=== PATIENT | male | born 1990 | race Caucasian/White ===

== ENCOUNTER 2017-05-11 13:16 | Inpatient (IN) | payer OTHER ==
[2017-05-11] MEDS: FAMOTIDINE 20 MG TAB PO (14:59)
[2017-05-11] MEDS: LISINOPRIL 20 MG TAB PO (14:59)
[2017-05-11] MEDS ORDERED: ONDANSETRON 4 MG INJ IV (15:00)
[2017-05-11] MEDS ORDERED: hydrALAzine 20 MG INJ IV (15:00)
[2017-05-11] MEDS ORDERED: HYDROCODONE/APAP (5/325) TAB PO (15:00)
[2017-05-11] MEDS ORDERED: ACETAMINOPHEN 325 MG TAB PO (15:00)
[2017-05-11 15:57] LABS: PHOSPHORUS 3.6 mg/dl (2.5-4.9)
[2017-05-11 15:57] LABS: MAGNESIUM 1.7 mg/dl (1.7-2.5)
[2017-05-11 15:58] LABS: CREATINE KINASE 61 IU/L (23-200)
[2017-05-11 16:09] LABS: CK INDEX 2.7
[2017-05-11 16:10] LABS: CK-MB 1.66 ng/ml (0.0-2.4)
[2017-05-11 16:28] LABS: THYROID STIMULATING HORMONE 0.901 MIU/L (0.465-4.680)
[2017-05-11 16:54] LABS: TROPONIN-I < 0.012 ng/ml (0.00-0.12)
[2017-05-11] MEDS: FUROSEMIDE 20 MG INJ IV (17:18)
[2017-05-11] MEDS: DOCUSATE SODIUM 100 MG CAP PO (20:19)
[2017-05-11 22:26] LABS: CREATINE KINASE 58 IU/L (23-200)
[2017-05-11 22:38] LABS: CK INDEX 2.4; TROPONIN-I 0.013 ng/ml (0.00-0.12)
[2017-05-11 22:52] LABS: CK-MB 1.41 ng/ml (0.0-2.4)
[2017-05-12] MEDS: FUROSEMIDE 20 MG INJ IV ×2 (05:52→13:16)
[2017-05-12] MEDS: DOCUSATE SODIUM 100 MG CAP PO ×2 (08:48→21:25)
[2017-05-12] MEDS: ASPIRIN (EC) 81 MG TAB PO (08:48)
[2017-05-12] MEDS: LISINOPRIL 20 MG TAB PO (08:49)
[2017-05-12] MEDS: FAMOTIDINE 20 MG TAB PO (08:49)
[2017-05-12 09:51] LABS: ADD MAN DIFF? NO
[2017-05-12 09:54] LABS: BASOPHIL # 0.1 10^3/ul (0.0-0.1); BASOPHILS % 0.8 % (0.0-2.0); EOSINOPHILS # 0.4 10^3/ul (0.0-0.5); EOSINOPHILS % 3.1 % (0.0-7.0); HEMATOCRIT 44.9 % (42.0-52.0); HEMOGLOBIN 14.7 g/dl (14.0-18.0); LYMPHOCYTES # 1.5 10^3/ul (0.8-2.9); LYMPHOCYTES % 11.2 % (15.0-51.0); MEAN CORPUSCULAR HGB CONC 32.7 g/dl (32.0-37.0); MEAN CORPUSCULAR VOLUME 82.5 fl (82.0-101.0); MEAN PLATELET VOLUME 10.8 fl (7.4-10.4); MONOCYTE # 0.8 10^3/ul (0.3-0.9); MONOCYTES % 5.8 % (0.0-11.0); NEUTROPHIL # 10.3 10^3/ul (1.6-7.5); NEUTROPHILS % 78.7 % (39.0-77.0); PLATELET COUNT 255 10^3/UL (140-415); RED BLOOD COUNT 5.44 10^6/ul (4.70-6.10); RED CELL DISTRIBUTION WIDTH 14.7 % (11.5-14.5)
[2017-05-12 10:22] LABS: ANION GAP 14 (8-16); BLOOD UREA NITROGEN 18 mg/dl (7-20); CALCIUM 9.1 mg/dl (8.4-10.2); CARBON DIOXIDE 30 mmol/L (21-31); CHLORIDE 103 mmol/L (97-110); CHOLESTEROL 146 mg/dl (100-200); CREATININE 0.87 mg/dl (0.61-1.24); GLUCOSE 98 mg/dl (70-220); HDL CHOLESTEROL 24 mg/dl (30-63); LDL CHOLESTEROL,CALCULATED 106 mg/dl; MAGNESIUM 1.8 mg/dl (1.7-2.5); POTASSIUM 4.2 mmol/L (3.5-5.1); SODIUM 143 mmol/L (135-144); TRIGLYCERIDES 80 mg/dl (0-149)
[2017-05-12] MEDS: MAGNESIUM SULFATE 3 GM in DEXTROSE 5% 100 ML IVPB (15:05)
[2017-05-12] MEDS: ENOXAPARIN 40 MG/0.4 ML SYG SC (15:47)
[2017-05-12] MEDS: FUROSEMIDE 40 MG INJ IV (18:22)
[2017-05-13] MEDS: FUROSEMIDE 40 MG INJ IV ×2 (06:32→17:40)
[2017-05-13 08:49] LABS: ADD MAN DIFF? NO
[2017-05-13 08:55] LABS: BASOPHIL # 0.1 10^3/ul (0.0-0.1); BASOPHILS % 1.1 % (0.0-2.0); EOSINOPHILS # 0.5 10^3/ul (0.0-0.5); HEMOGLOBIN 14.1 g/dl (14.0-18.0); LYMPHOCYTES # 1.5 10^3/ul (0.8-2.9); LYMPHOCYTES % 15.2 % (15.0-51.0); MEAN CORPUSCULAR HEMOGLOBIN 26.9 pg (29.0-33.0); MEAN CORPUSCULAR HGB CONC 32.8 g/dl (32.0-37.0); MEAN CORPUSCULAR VOLUME 82.1 fl (82.0-101.0); MEAN PLATELET VOLUME 10.9 fl (7.4-10.4); MONOCYTE # 0.8 10^3/ul (0.3-0.9); MONOCYTES % 7.7 % (0.0-11.0); NEUTROPHIL # 7.1 10^3/ul (1.6-7.5); NEUTROPHILS % 70.8 % (39.0-77.0); PLATELET COUNT 250 10^3/UL (140-415); RED BLOOD COUNT 5.24 10^6/ul (4.70-6.10); RED CELL DISTRIBUTION WIDTH 14.5 % (11.5-14.5)
[2017-05-13 08:55] LABS: WHITE BLOOD COUNT 10.1 10^3/ul (4.8-10.8)
[2017-05-13] MEDS: DOCUSATE SODIUM 100 MG CAP PO ×2 (09:18→20:36)
[2017-05-13] MEDS: FAMOTIDINE 20 MG TAB PO (09:18)
[2017-05-13] MEDS: ASPIRIN (EC) 81 MG TAB PO (09:18)
[2017-05-13] MEDS: LISINOPRIL 20 MG TAB PO (09:18)
[2017-05-13] MEDS: ENOXAPARIN 40 MG/0.4 ML SYG SC (09:19)
[2017-05-13 09:23] LABS: ANION GAP 12 (8-16); BLOOD UREA NITROGEN 22 mg/dl (7-20); CARBON DIOXIDE 32 mmol/L (21-31); CHLORIDE 103 mmol/L (97-110); GLUCOSE 107 mg/dl (70-220); POTASSIUM 3.8 mmol/L (3.5-5.1); SODIUM 143 mmol/L (135-144)
[2017-05-13 09:26] LABS: MAGNESIUM 1.9 mg/dl (1.7-2.5)
[2017-05-13] MEDS: MAGNESIUM SULFATE 2 GM/50 ML 50 ML IVPB (17:41)
[2017-05-13] MEDS: POTASSIUM CHLORIDE (SR) 20 MEQ TAB PO (17:41)
[2017-05-13] MEDS: ZOLPIDEM 5 MG TAB PO (23:17)
[2017-05-14] MEDS: FUROSEMIDE 40 MG TAB PO (06:11)
[2017-05-14 08:57] LABS: MAGNESIUM 2.1 mg/dl (1.7-2.5)
[2017-05-14 08:58] LABS: ANION GAP 13 (8-16); BLOOD UREA NITROGEN 22 mg/dl (7-20); CALCIUM 8.9 mg/dl (8.4-10.2); CARBON DIOXIDE 28 mmol/L (21-31); CHLORIDE 106 mmol/L (97-110); CREATININE 0.97 mg/dl (0.61-1.24); GLUCOSE 103 mg/dl (70-220); POTASSIUM 4.1 mmol/L (3.5-5.1); SODIUM 143 mmol/L (135-144)
[2017-05-14] MEDS: DOCUSATE SODIUM 100 MG CAP PO (10:10)
[2017-05-14] MEDS: FAMOTIDINE 20 MG TAB PO (10:10)
[2017-05-14] MEDS: ASPIRIN (EC) 81 MG TAB PO (10:10)
[2017-05-14] MEDS: LISINOPRIL 20 MG TAB PO (10:11)
[2017-05-14] MEDS: ENOXAPARIN 40 MG/0.4 ML SYG SC (10:15)
== END 2017-05-14 18:00 | disposition home or self-care (01) | DRG 292 ==
LOC: MS4 13:16
DX: I11.0 Hypertensive heart disease with heart failure (principal); I47.1 Supraventricular tachycardia; Z68.42 Body mass index [BMI] 45.0-49.9, adult; I42.0 Dilated cardiomyopathy; I50.23 Acute on chronic systolic (congestive) heart failure; E66.01 Morbid (severe) obesity due to excess calories; Z71.3 Dietary counseling and surveillance; F15.10 Other stimulant abuse, uncomplicated; F12.10 Cannabis abuse, uncomplicated; Z72.0 Tobacco use
CPT/HCPCS: 71045; 80048; 80061; 82550; 82553; 83036; 83735; 84100; 84443; 84484; 85025; 87081; 93005; 93306; J1940

== ENCOUNTER 2018-12-08 12:54 | Emergency (ER) | payer OTHER ==
[2018-12-08] MEDS: predniSONE 20 MG TAB PO (13:57)
[2018-12-08 14:06] LABS: ADD MAN DIFF? NO
[2018-12-08 14:09] LABS: BASOPHIL # 0.1 10^3/ul (0.0-0.1); BASOPHILS % 0.5 % (0.0-2.0); EOSINOPHILS # 0.4 10^3/ul (0.0-0.5); EOSINOPHILS % 2.3 % (0.0-7.0); HEMATOCRIT 45.8 % (42.0-52.0); HEMOGLOBIN 15.3 g/dl (14.0-18.0); LYMPHOCYTES # 0.8 10^3/ul (0.8-2.9); LYMPHOCYTES % 4.1 % (15.0-51.0); MEAN CORPUSCULAR HEMOGLOBIN 29.5 pg (29.0-33.0); MEAN CORPUSCULAR HGB CONC 33.4 g/dl (32.0-37.0); MEAN CORPUSCULAR VOLUME 88.2 fl (82.0-101.0); MEAN PLATELET VOLUME 10.6 fl (7.4-10.4); MONOCYTE # 1.1 10^3/ul (0.3-0.9); MONOCYTES % 5.9 % (0.0-11.0); NEUTROPHIL # 16.6 10^3/ul (1.6-7.5); NEUTROPHILS % 86.8 % (39.0-77.0); PLATELET COUNT 202 10^3/UL (140-415); RED BLOOD COUNT 5.19 10^6/ul (4.70-6.10); RED CELL DISTRIBUTION WIDTH 12.6 % (11.5-14.5)
[2018-12-08 14:09] LABS: WHITE BLOOD COUNT 19.2 10^3/ul (4.8-10.8)
[2018-12-08] MEDS: IPRATROPIUM (NEB) 0.5 MG/2.5 ML AMP INH (14:15)
[2018-12-08] MEDS: ALBUTEROL 0.5% (NEB) 2.5 MG/0.5 ML AMP INH (14:15)
[2018-12-08 14:26] LABS: ALANINE AMINOTRANSFERASE 27 IU/L (13-69); ALBUMIN 4.5 g/dl (3.3-4.9); ALBUMIN/GLOBULIN RATIO 1.36; ALKALINE PHOSPHATASE 73 IU/L (42-121); ANION GAP 9 (5-13); ASPARTATE AMINO TRANSFERASE 24 IU/L (15-46); BILIRUBIN,INDIRECT 1.4 mg/dl (0-1.1); BILIRUBIN,TOTAL 1.4 mg/dl (0.2-1.3); BLOOD UREA NITROGEN 8 mg/dl (7-20); CALCIUM 9.7 mg/dl (8.4-10.2); CARBON DIOXIDE 23 mmol/L (21-31); CHLORIDE 104 mmol/L (97-110); CREATININE 0.75 mg/dl (0.61-1.24); Estimated GFR > 60 mL/min (>60); GLUCOSE 113 mg/dl (70-220); POTASSIUM 3.9 mmol/L (3.5-5.1); SODIUM 136 mmol/L (135-144); TOTAL PROTEIN 7.8 g/dl (6.1-8.1)
[2018-12-08 14:38] LABS: TROPONIN-I < 0.012 ng/ml (0.000-0.120)
[2018-12-08 14:49] LABS: B-TYPE NATRIURETIC PEPTIDE 1900 PG/ML (0-125)
== END 2018-12-08 15:57 | disposition home or self-care (01) ==
LOC: FTE 12:54
DX: J18.9 Pneumonia, unspecified organism (principal); I11.0 Hypertensive heart disease with heart failure; I50.9 Heart failure, unspecified; D72.829 Elevated white blood cell count, unspecified; J40 Bronchitis, not specified as acute or chronic; Z79.82 Long term (current) use of aspirin
CPT/HCPCS: 36415; 71046; 80053; 83880; 84484; 85025; 94644; 99285